=== PATIENT | female | born 1995 | race Caucasian/White ===

== ENCOUNTER 2020-07-10 16:52 | Emergency (ER) | payer BC, SELFPAY ==
[2020-07-10 17:00] VITALS: BP 156/101; PULSE 106; RESP 22; TEMP 36.6; O2SAT 98; BMI 24.1
--- NOTE | 2020-07-10 17:10 | CT_ITS ---
PROCEDURE INFORMATION: Exam: CT Head Without Contrast Exam date and time: 07/10/2020 5:10 PM Age: 25 years old Clinical indication: Dizziness; Patient HX: Headache, bilateral hand numbnness; Additional info: Headache, bilateral hand numbness TECHNIQUE: Imaging protocol: Computed tomography of the head without contrast. Radiation optimization: All CT scans at this facility use at least one of these dose optimization techniques: automated exposure control; mA and/or kV adjustment per patient size (includes targeted exams where dose is matched to clinical indication); or iterative reconstruction. COMPARISON: No relevant prior studies available. FINDINGS: Brain: Normal. No hemorrhage. Unremarkable white matter. No mass effect. Cerebral ventricles: No ventriculomegaly. Bones/joints: No acute fracture. Paranasal sinuses: Visualized sinuses are unremarkable. No fluid levels. Mastoid air cells: Visualized mastoid air cells are well aerated. Soft tissues: No acute changes IMPRESSION: No acute intracranial abnormality.
--- NOTE | 2020-07-10 17:12 | HMH.EDGENADL ---
ED Disposition Clinical Impression: Complicated migraine Disposition: Home, Self-Care Condition on Discharge: Good Instructions: DI for Migraine Additional Instructions: Return for recurrent headache numbness in your arms or legs nausea or any other concerns within the next 8 hours otherwise follow-up with your primary care physician tomorrow Referrals: Jihan Unger [Primary Care Provider] - - Critical Care Critical Care Time: No Attestation: On 07/10/20, the high probability of a clinically significant, sudden or life threatening deterioration of the following system(s) required my full and direct attention, intervention and personal management. The time I documented below is in addition to time spent performing reported procedures but includes the following listed in this critical care notation. Medical Decision Making - Medical Records Medical records reviewed: Yes: I reviewed the patient's medical records. - Elvis Inquiry Pt receiving controlled substance: No Vital Signs: 07/10/20 17:00 07/10/20 17:17 Temperature 97.8 F Temperature Source Oral Pulse Rate 118 H Pulse Rate [Right] 106 H Respiratory Rate 22 Blood Pressure 124/74 Blood Pressure [Right Arm] 156/101 H Blood Pressure Mean 98 Blood Pressure Mean [Right Arm] 119 Blood Pressure Source [Right Arm] Automatic Cuff Blood Pressure Position [Right Arm] Sitting 02 Sat by Pulse Oximetry 98 100 Oxygen Delivery Method Room Air - Lab Data Lab Results 07/10/20 16:50: Sodium 138, Potassium 3.6, Chloride 102, Carbon Dioxide 23, Anion Gap 16.6 H, BUN 16, Creatinine 0.80, Estimated Creat Clear 112, Estimated GFR 87, Est GFR ( Amer) 106, Glucose 132 H, Calcium 9.4, Magnesium 1.6, TSH 0.72 07/10/20 16:50: WBC 19.9 H, RBC 5.39, Hgb 15.9, Hct 47.7 H, MCV 88.5, MCH 29.5, MCHC 33.3, RDW 12.4, Plt Count 249, MPV 7.8, Neut % (Auto) 93.2 H, Lymph % (Auto) 2.9 L, [place] % (Auto) 2.7, Eos % (Auto) 1.0, Baso % (Auto) 0.3, Neut # (Auto) 18.5 H, Lymph # (Auto) 0.6 L, [place] # (Auto) 0.5, Eos # (Auto) 0.2, Baso # (Auto) 0.1, Total Counted 100, Neutrophils % (Manual) 89 H, Lymphocytes % (Manual) 4 L, Monocytes % (Manual) 5, Eosinophils % (Manual) 1, Metamyelocytes % 1.0, Platelet Estimate Normal, RBC Morphology Normal 07/10/20 16:50: Serum HCG, Qual Negative Result diagrams: 07/10/20 16:50 07/10/20 16:50 Orders (Tests/Meds): ED MEDICATIONS Discontinued Medications Generic Name Dose Route Start Last Admin Trade Name [place] PRN Reason Stop Dose Admin Diphenhydramine HCl 25 mg 07/10/20 17:11 07/10/20 17:18 Diphenhydramine 50mg/Ml Vial IV 07/10/20 17:12 25 mg ONCE ONE Administration Metoclopramide HCl 5 mg 07/10/20 18:04 07/10/20 18:06 Metoclopramide Hcl 10mg/2ml Vial IVP 07/10/20 18:05 5 mg ONCE ONE Administration Prochlorperazine Edisylate 10 mg 07/10/20 17:11 07/10/20 17:19 Prochlorperazine 10mg/2ml Vial IV 07/10/20 17:12 10 mg ONCE ONE Administration ORDERS Category Date Time Status CT angio head Stat Cat Scan 07/10/20 17:[address] angio neck Stat Cat Scan 07/10/20 17:10 Ordered Medical Decision Narrative: 25-year-old with new onset headache as above. She is in no acute distress nontoxic-appearing comfortable in the bed. She has normal neurological exam and NIH stroke scale is 0. Atypical presentation for subarachnoid hemorrhage meningitis or other emergent pathology. CT obtained due to paresthesias however I think more likely to be related to complex migraine. Giving medicine for migraine and plan to reassess Patient's nausea vomiting headache and paresthesia all resolved with antiemetics and pain medication for headache. She was feeling much better however she declined the contrasted scan because she thought it would make her more nauseated I offered antiemetic and more nausea medicine however she decided not to do this. She has full capacity to make this decision and understands th
[2020-07-10 17:17] VITALS: BP 124/74; PULSE 118; O2SAT 100
[2020-07-10 17:26] LABS: Basophils # 0.1 K/mm3 (0-0.2); Basophils % 0.3 % (0.1-2.0); Chloride 102 mmol/L (98-107); Eosinophils # 0.2 K/mm3 (0.0-0.4); Hematocrit 47.7 % (37.0-47.0); Hemoglobin 15.9 g/dL (12.2-16.2); Lymphocytes # 0.6 K/mm3 (0.7-4.5); Lymphocytes % 2.9 % (10-50); Mean Corpuscular HGB Conc 33.3 g/dL (31.8-35.4); Mean Corpuscular Hemoglobin 29.5 pg (27.0-31.2); Mean Corpuscular Volume 88.5 fl (81-99); Mean Platelet Volume 7.8 fl (7.4-10.4); Monocytes # 0.5 K/mm3 (0.1-1.0); Monocytes % 2.7 % (1.7-9.3); Neutrophils # 18.5 K/mm3 (1.8-7.8); Neutrophils % 93.2 % (37.0-80.0); Platelet Count 249 K/mm3 (142-424); Potassium 3.6 mmoL/L (3.5-5.1); Red Blood Count 5.39 M/mm3 (4.20-5.40); Red Cell Distribution Width 12.4 % (11.5-17.5); Sodium 138 mmol/L (136-145); White Blood Count 19.9 K/mm3 (4.8-10.8)
[2020-07-10 17:27] LABS: MANUAL DIFFERENTIAL MANUAL DIFFERENTIAL (MANUAL DIFF)
[2020-07-10 17:28] LABS: Blood Urea Nitrogen 16 mg/dl (7-17); Creatinine Clearance Estimated 112 mL/min (50-200); Estimated Glomerular Filt Rate 87 ml/min (>60); GFR (African American) 106 ML/MIN (>60)
[2020-07-10 17:29] LABS: Anion Gap 16.6 mEq/L (5-15); Calcium 9.4 mg/dl (8.4-10.2); Carbon Dioxide 23 mmol/L (22.0-30.0); Glucose 132 mg/dl (74-100); Magnesium 1.6 mg/dl (1.6-2.3)
[2020-07-10 17:34] LABS: HCG Qualitative, Serum Negative (Negative)
[2020-07-10 17:43] LABS: Eosinophils % 1 % (0-3); Lymphocytes % 4 % (10-50); Monocytes % 5 % (2-9); Neutrophils % 89 % (42-76); Platelet Estimate Normal; RBC Morphology Normal; Total Cells Counted 100
--- NOTE | 2020-07-10 17:45 | PC.NURSE ---
pt going to CT
[2020-07-10 18:00] LABS: Thyroid Stimulating Hormone 0.72 uIU/mL (0.465-4.68)
--- NOTE | 2020-07-10 18:00 | PC.NURSE ---
Radiology called and advised patient is refusing scans due to nausea and inability to lay flat. Pt was given Reglan to help with nausea. Patient still refused scan. I advised her that she most likely wouldn't find out what is going on if she isn't able to do the scans and she refused and requested to be returned to her room. Patient was taken back to her room & MD Woods notified.
--- NOTE | 2020-07-10 18:29 | PC.NURSE ---
MD at bedside speaking with pt about CT scans.
--- NOTE | 2020-07-10 19:18 | PC.NURSE ---
ct scans cancelled. pt refused.
[2020-07-10 19:30] VITALS: BP 112/72; PULSE 105; RESP 16; O2SAT 100
[2020-07-10 20:08] VITALS: BP 107/70; PULSE 99; RESP 16; TEMP 36.6; O2SAT 99
== END 2020-07-10 20:10 | disposition home or self-care (01) ==
PROVIDERS: Emergency Provider Emergency Medicine; PCP Nurse Practitioner Family
DX: G43.109 Migraine with aura, not intractable, without status migrainosus (principal)
CPT/HCPCS: 70450; 80048; 83735; 84443; 84703; 85007; 85025; 96374; 96375; 99282

== ENCOUNTER → 2022-05-27 10:57 | Outpatient (CLI) | payer BC, SELFPAY ==
[2022-05-27 18:46] LABS: Basophils # 0.1 K/mm3 (0-0.2); Basophils % 0.9 % (0.1-2.0); Eosinophils # 0.2 K/mm3 (0.0-0.4); Eosinophils % 3.1 % (0.1-12.0); Hematocrit 44.7 % (37.0-47.0); Hemoglobin 15.3 g/dL (12.2-16.2); Lymphocytes # 1.2 K/mm3 (0.7-4.5); Mean Corpuscular HGB Conc 34.2 g/dL (31.8-35.4); Mean Corpuscular Hemoglobin 30.8 pg (27.0-31.2); Mean Corpuscular Volume 90.1 fl (81-99); Mean Platelet Volume 8.4 fl (7.4-10.4); Monocytes # 0.3 K/mm3 (0.1-1.0); Monocytes % 5.7 % (1.7-9.3); Neutrophils # 4.1 K/mm3 (1.8-7.8); Neutrophils % 70.3 % (37.0-80.0); Platelet Count 267 K/mm3 (142-424); Red Blood Count 4.96 M/mm3 (4.20-5.40); Red Cell Distribution Width 12.9 % (11.5-17.5); White Blood Count 5.9 K/mm3 (4.8-10.8)
[2022-05-27 19:04] LABS: Alanine Aminotransferase 22 U/L (12-78); Albumin Level 4.9 g/dl (3.5-5.0); Albumin/Globulin Ratio 1.7 (1.1-1.8); Alkaline Phosphatase 72 U/L (38-126); Anion Gap 11.4 mEq/L (5-15); Aspartate Amino Transferase 28 U/L (14-36); Bilirubin,Total 0.5 mg/dl (0.2-1.3); Blood Urea Nitrogen 9 mg/dl (7-17); Calcium 9.2 mg/dl (8.4-10.2); Carbon Dioxide 27 mmol/L (22.0-30.0); Chloride 101 mmol/L (98-107); Estimated Glomerular Filt Rate 86 ml/min (>60); GFR (African American) 104 ML/MIN (>60); Globulin 2.9 g/dL (1.3-3.2); Glucose 66 mg/dl (74-100); Potassium 4.4 mmoL/L (3.5-5.1); Sodium 135 mmol/L (136-145); Total Protein,Serum 7.8 g/dl (6.3-8.2)
[2022-05-27 19:31] LABS: Thyroid Stimulating Hormone 1.66 uIU/mL (0.465-4.68)
== END ==
PROVIDERS: PCP Family Medicine; Visit Provider Family Medicine
DX: F43.23 Adjustment disorder with mixed anxiety and depressed mood (principal); Z79.899 Other long term (current) drug therapy
CPT/HCPCS: 80053; 84443; 85025

== ENCOUNTER → 2022-08-24 16:58 | Outpatient (CLI) | payer BC, SELFPAY ==
--- NOTE | 2022-08-24 17:22 | XR_ITS ---
PROCEDURE INFORMATION: Exam: XR Chest Exam date and time: 08/24/2022 5:15 PM Age: 27 years old Clinical indication: Other: Diminished breath sounds left lung base. ; Additional info: Diminished breath sounds at left lung base TECHNIQUE: Imaging protocol: Radiologic exam of the chest. Views: 2 views. COMPARISON: CR CXR CHEST(2 VIEWS-NOT PORTABLE) 10/22/2016 9:21 AM FINDINGS: Lungs: Unremarkable. No consolidation. Pleural spaces: Unremarkable. No pleural effusion. No pneumothorax. Heart/Mediastinum: Unremarkable. No cardiomegaly. Bones/joints: Unremarkable. IMPRESSION: No acute findings.
== END ==
PROVIDERS: PCP Nurse Practitioner; Visit Provider Nurse Practitioner
DX: R06.89 Other abnormalities of breathing (principal)
CPT/HCPCS: 71046

== ENCOUNTER → 2022-10-19 23:37 | Outpatient (CLI) | payer BC, SELFPAY | PROVIDERS: PCP Nurse Practitioner; Visit Provider Nurse Practitioner | DX: N20.0 Calculus of kidney (principal) | CPT/HCPCS: 87086 ==

== ENCOUNTER → 2022-11-17 23:13 | Outpatient (CLI) | payer BC, SELFPAY ==
[2022-11-17 18:46] LABS: Basophils % 0.7 % (0.1-2.0); Eosinophils # 0.4 K/mm3 (0.0-0.4); Eosinophils % 6.9 % (0.1-12.0); Hemoglobin 16.1 g/dL (12.2-16.2); Lymphocytes # 1.7 K/mm3 (0.7-4.5); Mean Corpuscular HGB Conc 32.8 g/dL (31.8-35.4); Mean Corpuscular Hemoglobin 30.2 pg (27.0-31.2); Mean Corpuscular Volume 92.1 fl (81-99); Mean Platelet Volume 9.5 fl (7.4-10.4); Monocytes # 0.3 K/mm3 (0.1-1.0); Neutrophils # 3.7 K/mm3 (1.8-7.8); Neutrophils % 60.4 % (37.0-80.0); Platelet Count 251 K/mm3 (142-424); Red Blood Count 5.32 M/mm3 (4.20-5.40); Red Cell Distribution Width 12.9 % (11.5-17.5); White Blood Count 6.1 K/mm3 (4.8-10.8)
[2022-11-17 18:51] LABS: Alanine Aminotransferase 38 U/L (12-78); Albumin Level 4.5 g/dl (3.5-5.0); Albumin/Globulin Ratio 1.6 (1.1-1.8); Alkaline Phosphatase 71 U/L (38-126); Aspartate Amino Transferase 34 U/L (14-36); Bilirubin,Total 0.4 mg/dl (0.2-1.3); Blood Urea Nitrogen 12 mg/dl (7-17); Carbon Dioxide 30 mmol/L (22.0-30.0); Chloride 101 mmol/L (98-107); Chol/HDL Ratio 5.6 (1-3.5); Cholesterol 178 mg/dl (140-200); Estimated Glomerular Filt Rate 86 ml/min (>60); GFR (African American) 104 ML/MIN (>60); Globulin 2.8 g/dL (1.3-3.2); Glucose 84 mg/dl (74-100); HDL Cholesterol 32 mg/dl (40-60); Sodium 139 mmol/L (136-145); Total Protein,Serum 7.3 g/dl (6.3-8.2); Triglycerides 196 mg/dl (30-150); VLDL Cholesterol 39 mg/dL (0-40)
[2022-11-17 19:02] LABS: Direct LDL Cholesterol 113.62 mg/dL (100-129)
[2022-11-17 19:08] LABS: 25-OH Vitamin D, Total 30.4 ng/mL (30-100)
[2022-11-17 19:22] LABS: Thyroid Stimulating Hormone 1.87 uIU/mL (0.465-4.68)
[2022-11-17 19:29] LABS: Hemoglobin A1C 4.9 % (4.0-6.0)
[2022-11-17 19:40] LABS: Vitamin B12 321 pg/mL (239-931)
== END ==
PROVIDERS: PCP Nurse Practitioner; Visit Provider Nurse Practitioner
DX: R73.09 Other abnormal glucose (principal); Z86.32 Personal history of gestational diabetes; Z79.899 Other long term (current) drug therapy
CPT/HCPCS: 80053; 80061; 82306; 82607; 83036; 84443; 85025

== ENCOUNTER → 2022-11-29 06:48 | Outpatient (CLI) | payer BC, SELFPAY ==
[2022-11-30 05:41] LABS: Creatinine,Urine Random 36 mg/dL (Not Estab.); Microalbumin < 6.000 mg/L (0-16.7)
== END ==
PROVIDERS: PCP Nurse Practitioner; Visit Provider Nurse Practitioner
DX: N18.9 Chronic kidney disease, unspecified (principal); R73.09 Other abnormal glucose
CPT/HCPCS: 82043; 82570

== ENCOUNTER → 2022-12-27 19:11 | Outpatient (CLI) | payer BC, SELFPAY | PROVIDERS: PCP Nurse Practitioner; Visit Provider Nurse Practitioner | DX: Z20.822 Contact with and (suspected) exposure to COVID-19 (principal) | CPT/HCPCS: 87635 ==

== ENCOUNTER → 2023-01-27 09:20 | Outpatient (CLI) | payer BC, SELFPAY | PROVIDERS: PCP Nurse Practitioner; Visit Provider Nurse Practitioner | DX: R30.0 Dysuria (principal) | CPT/HCPCS: 87086 ==

== ENCOUNTER 2023-04-27 22:21 | Outpatient (CLI) | payer BC, SELFPAY ==
[2023-04-27 18:57] LABS: Basophils # 0.1 K/mm3 (0-0.2); Basophils % 0.6 % (0.1-2.0); Hematocrit 43.8 % (37.0-47.0); Hemoglobin 14.8 g/dL (12.2-16.2); Lymphocytes # 1.1 K/mm3 (0.7-4.5); Lymphocytes % 15.8 % (10-50); Mean Corpuscular HGB Conc 33.8 g/dL (31.8-35.4); Mean Corpuscular Hemoglobin 31.2 pg (27.0-31.2); Mean Corpuscular Volume 92.3 fl (81-99); Mean Platelet Volume 8.8 fl (7.4-10.4); Monocytes # 0.4 K/mm3 (0.1-1.0); Monocytes % 5.7 % (1.7-9.3); Neutrophils # 5.6 K/mm3 (1.8-7.8); Platelet Count 222 K/mm3 (142-424); Red Blood Count 4.75 M/mm3 (4.20-5.40); White Blood Count 7.2 K/mm3 (4.8-10.8)
[2023-04-27 20:06] LABS: Alanine Aminotransferase 249 U/L (12-78); Albumin Level 4.4 g/dl (3.5-5.0); Albumin/Globulin Ratio 1.8 (1.1-1.8); Alkaline Phosphatase 76 U/L (38-126); Anion Gap 8.9 mEq/L (5-15); Aspartate Amino Transferase 92 U/L (14-36); Bilirubin,Total 0.5 mg/dl (0.2-1.3); Blood Urea Nitrogen 11 mg/dl (7-17); Carbon Dioxide 27 mmol/L (22.0-30.0); Chloride 104 mmol/L (98-107); Chol/HDL Ratio 5.8 (1-3.5); Cholesterol 236 mg/dl (140-200); Estimated Glomerular Filt Rate 75 ml/min (>60); GFR (African American) 90 ML/MIN (>60); Globulin 2.4 g/dL (1.3-3.2); Glucose 89 mg/dl (74-100); HDL Cholesterol 41 mg/dl (40-60); Potassium 3.9 mmoL/L (3.5-5.1); Sodium 136 mmol/L (136-145); Total Protein,Serum 6.8 g/dl (6.3-8.2); Triglycerides 133 mg/dl (30-150); VLDL Cholesterol 27 mg/dL (0-40)
[2023-04-27 20:10] LABS: Free T4 (Free Thyroxine) 0.98 ng/dl (0.78-2.19)
[2023-04-27 20:18] LABS: Direct LDL Cholesterol 135.73 mg/dL (100-129)
[2023-04-27 20:56] LABS: Iron 71 ug/dL (37-170)
[2023-04-27 21:03] LABS: Vitamin B12 > 1000 pg/mL (239-931)
[2023-04-27 21:05] LABS: Total Iron Binding Capacity 302 ug/dL (265-497)
[2023-04-29 15:51] LABS: Rapid Plasma Reagin Ab Titer Non Reactive titer (NonRea<1:1)
[2023-05-01 12:25] LABS: Anti-Centromere B Antibodies <0.2 AI (0.0-0.9); Anti-DNA (DS) Ab Qn 2 IU/mL (0-9); Anti-Jo-1 <0.2 AI (0.0-0.9); Anti-Smith Antibody <0.2 AI (0.0-0.9); Antichromatin Antibodies <0.2 AI (0.0-0.9); Antiscleroderma-70 Antibodies <0.2 AI (0.0-0.9); RNP Antibodies <0.2 AI (0.0-0.9); Sjogren's Anti-SS-A <0.2 AI (0.0-0.9); Sjogren's Anti-SS-B <0.2 AI (0.0-0.9)
== END 2023-04-27 23:59 ==
LOC: LAB.DROPOF 22:21
PROVIDERS: PCP Nurse Practitioner; Visit Provider Nurse Practitioner
DX: L65.8 Other specified nonscarring hair loss (principal); R53.83 Other fatigue; R74.01 Elevation of levels of liver transaminase levels; R79.89 Other specified abnormal findings of blood chemistry; Z79.899 Other long term (current) drug therapy
CPT/HCPCS: 80053; 80061; 82306; 82607; 82728; 83036; 83540; 83550; 84439; 84443; 85025; 86225; 86235; 86593

== ENCOUNTER 2023-05-01 10:33 | Outpatient (CLI) | payer BC, SELFPAY ==
[2023-05-01 11:59] LABS: Free T4 (Free Thyroxine) 0.96 ng/dl (0.78-2.19)
[2023-05-01 12:13] LABS: Thyroid Stimulating Hormone 1.97 uIU/mL (0.465-4.68)
[2023-05-02 08:17] LABS: Triiodothyronine (T3) Free 3.6 pg/mL (2.0-4.4)
== END 2023-05-01 23:59 ==
LOC: LAB 10:34
PROVIDERS: PCP Nurse Practitioner; Visit Provider Nurse Practitioner
DX: R79.89 Other specified abnormal findings of blood chemistry (principal); L65.9 Nonscarring hair loss, unspecified
CPT/HCPCS: 36415; 84439; 84443; 84481

== ENCOUNTER 2023-06-06 06:46 | Outpatient (CLI) | payer BC, SELFPAY ==
[2023-06-06 18:24] LABS: Basophils # 0.1 K/mm3 (0-0.2); Basophils % 1.4 % (0.1-2.0); Eosinophils % 0.5 % (0.1-12.0); Hematocrit 44.3 % (37.0-47.0); Hemoglobin 14.8 g/dL (12.2-16.2); Lymphocytes # 1.1 K/mm3 (0.7-4.5); Lymphocytes % 21.9 % (10-50); Mean Corpuscular HGB Conc 33.4 g/dL (31.8-35.4); Mean Corpuscular Hemoglobin 31.5 pg (27.0-31.2); Mean Corpuscular Volume 94.4 fl (81-99); Mean Platelet Volume 8.3 fl (7.4-10.4); Monocytes # 0.2 K/mm3 (0.1-1.0); Monocytes % 4.2 % (1.7-9.3); Neutrophils # 3.7 K/mm3 (1.8-7.8); Neutrophils % 71.9 % (37.0-80.0); Platelet Count 223 K/mm3 (142-424); Red Blood Count 4.69 M/mm3 (4.20-5.40); Red Cell Distribution Width 14.1 % (11.5-17.5); White Blood Count 5.1 K/mm3 (4.8-10.8)
[2023-06-06 18:36] LABS: INR 0.99 (0.9-1.1); Prothrombin Time 10.7 seconds (10.1-12.5)
[2023-06-06 19:05] LABS: Erythrocyte Sedimentation Rate 6 mm/hr (0-20)
[2023-06-06 19:41] LABS: Alanine Aminotransferase 87 U/L (12-78); Albumin Level 4.8 g/dl (3.5-5.0); Albumin/Globulin Ratio 1.8 (1.1-1.8); Alkaline Phosphatase 89 U/L (38-126); Anion Gap 10.4 mEq/L (5-15); Aspartate Amino Transferase 53 U/L (14-36); Bilirubin,Total 0.6 mg/dl (0.2-1.3); Blood Urea Nitrogen 11 mg/dl (7-17); Calcium 9.5 mg/dl (8.4-10.2); Carbon Dioxide 29 mmol/L (22.0-30.0); Chloride 104 mmol/L (98-107); Estimated Glomerular Filt Rate 66 ml/min (>60); GFR (African American) 80 ML/MIN (>60); Globulin 2.6 g/dL (1.3-3.2); Glucose 89 mg/dl (74-100); Potassium 3.4 mmoL/L (3.5-5.1); Sodium 140 mmol/L (136-145); Total Protein,Serum 7.4 g/dl (6.3-8.2)
[2023-06-06 19:53] LABS: C-Reactive Protein < 0.3 mg/L (0-4)
[2023-06-06 20:01] LABS: Free T4 (Free Thyroxine) 1.13 ng/dl (0.78-2.19)
[2023-06-06 20:16] LABS: Thyroid Stimulating Hormone 0.41 uIU/mL (0.465-4.68)
[2023-06-06 22:57] LABS: Vitamin B12 > 1000 pg/mL (239-931)
== END 2023-06-06 23:59 | disposition home or self-care (01) ==
LOC: LAB.DROPOF 06-08 06:46
PROVIDERS: PCP Nurse Practitioner; Visit Provider Nurse Practitioner
DX: N18.9 Chronic kidney disease, unspecified (principal); R53.83 Other fatigue; R23.3 Spontaneous ecchymoses; R74.8 Abnormal levels of other serum enzymes; Z79.899 Other long term (current) drug therapy
CPT/HCPCS: 80053; 82607; 82746; 84439; 84443; 85025; 85610; 85651; 86140

== ENCOUNTER 2023-06-26 10:00 | Outpatient (CLI) | payer BC, SELFPAY ==
[2023-06-26 18:57] LABS: Basophils # 0.1 K/mm3 (0-0.2); Basophils % 1.4 % (0.1-2.0); Eosinophils % 0.4 % (0.1-12.0); Hematocrit 41.2 % (37.0-47.0); Hemoglobin 13.9 g/dL (12.2-16.2); Lymphocytes # 1.1 K/mm3 (0.7-4.5); Lymphocytes % 28.7 % (10-50); Mean Corpuscular HGB Conc 33.8 g/dL (31.8-35.4); Mean Corpuscular Hemoglobin 31.5 pg (27.0-31.2); Mean Corpuscular Volume 93.3 fl (81-99); Monocytes # 0.3 K/mm3 (0.1-1.0); Monocytes % 7.1 % (1.7-9.3); Neutrophils # 2.5 K/mm3 (1.8-7.8); Neutrophils % 62.5 % (37.0-80.0); Platelet Count 216 K/mm3 (142-424); Red Blood Count 4.42 M/mm3 (4.20-5.40); Red Cell Distribution Width 13.8 % (11.5-17.5)
[2023-06-26 19:46] LABS: Alanine Aminotransferase 105 U/L (12-78); Albumin Level 4.4 g/dl (3.5-5.0); Albumin/Globulin Ratio 1.7 (1.1-1.8); Alkaline Phosphatase 70 U/L (38-126); Anion Gap 11.3 mEq/L (5-15); Aspartate Amino Transferase 43 U/L (14-36); Bilirubin,Total 0.6 mg/dl (0.2-1.3); Blood Urea Nitrogen 14 mg/dl (7-17); Calcium 9.2 mg/dl (8.4-10.2); Carbon Dioxide 31 mmol/L (22.0-30.0); Chloride 102 mmol/L (98-107); Estimated Glomerular Filt Rate 85 ml/min (>60); GFR (African American) 103 ML/MIN (>60); Globulin 2.6 g/dL (1.3-3.2); Glucose 105 mg/dl (74-100); Potassium 3.3 mmoL/L (3.5-5.1); Sodium 141 mmol/L (136-145)
[2023-06-26 19:52] LABS: C-Reactive Protein 0.4 mg/L (0-4)
[2023-06-26 20:02] LABS: Free T4 (Free Thyroxine) 0.96 ng/dl (0.78-2.19)
[2023-06-26 20:05] LABS: Erythrocyte Sedimentation Rate 13 mm/hr (0-20)
[2023-06-26 20:17] LABS: Thyroid Stimulating Hormone 1.39 uIU/mL (0.465-4.68)
[2023-06-28 16:32] LABS: Lyme Ab CIA Negative (Negative)
== END 2023-06-26 23:59 | disposition home or self-care (01) ==
LOC: LAB.DROPOF 06-28 10:00
PROVIDERS: PCP Nurse Practitioner; Visit Provider Nurse Practitioner
DX: G43.919 Migraine, unspecified, intractable, without status migrainosus (principal)
CPT/HCPCS: 80053; 84439; 84443; 85025; 85651; 86140; 86618

== ENCOUNTER 2023-08-02 13:05 | Outpatient (CLI) | payer BC, SELFPAY ==
--- NOTE | 2023-08-02 13:05 | US_ITS ---
FINAL REPORT CLINICAL HISTORY: left posterior cervical LAD COMPARISON: None FINDINGS: Sonographic images were obtained of the bilateral neck. The bilateral submandibular and parotid glands appear normal. There are several small and borderline size lymph nodes. At the level of the palpable abnormality in the posterior neck is a 9 mm ovoid hypoechoic mass likely representing a lymph node. IMPRESSION: Palpable abnormality likely represents a lymph node. Reviewed, Interpreted and Dictated by Juan Deleon III, MD Transcribed by Anna Hairston Authenticated and [facility]
--- NOTE | 2023-08-02 13:05 | MR_ITS ---
FINAL REPORT CLINICAL HISTORY: intractable migraine FINDINGS: Multiplanar MR imaging of the brain was performed without and with contrast. There is no evidence of intracranial hemorrhage or mass. No abnormal extra-axial fluid collection is seen. The ventricular size is within normal limits. There is no evidence of shift of the midline structures. The posterior fossa and brainstem have an unremarkable appearance. No area of abnormal restricted diffusion is identified. No abnormal contrast enhancement is seen. Normal major vessel vascular flow voids are noted. IMPRESSION: No acute intracranial abnormality identified. Authenticated and ERN
[2023-08-02] MEDS: GADOTERIDOL INJ 20ML SYRINGE 14 ML IV (15:25)
== END 2023-08-02 23:59 | disposition home or self-care (01) ==
LOC: RAD 13:05
PROVIDERS: PCP Nurse Practitioner; Visit Provider Nurse Practitioner
DX: R59.0 Localized enlarged lymph nodes (principal); G43.919 Migraine, unspecified, intractable, without status migrainosus
CPT/HCPCS: 70553; 76536; A9576

== ENCOUNTER 2023-08-30 08:02 | Outpatient (CLI) | payer BC, SELFPAY | END 2023-08-30 23:59 | disposition home or self-care (01) | LOC: LAB.DROPOF 08-31 08:48 | PROVIDERS: PCP Nurse Practitioner; Visit Provider Nurse Practitioner | DX: R30.0 Dysuria (principal) | CPT/HCPCS: 87086 ==

== ENCOUNTER 2023-10-24 14:35 | Outpatient (CLI) | payer BC, SELFPAY ==
[2023-10-24 18:59] LABS: Eosinophils % 0.4 % (0.1-12.0); Hematocrit 42.6 % (37.0-47.0); Hemoglobin 14.2 g/dL (12.2-16.2); Lymphocytes # 1.1 K/mm3 (0.7-4.5); Lymphocytes % 28.4 % (10-50); Mean Corpuscular HGB Conc 33.3 g/dL (31.8-35.4); Mean Corpuscular Hemoglobin 31.5 pg (27.0-31.2); Mean Corpuscular Volume 94.4 fl (81-99); Mean Platelet Volume 8.9 fl (7.4-10.4); Monocytes # 0.3 K/mm3 (0.1-1.0); Monocytes % 7.2 % (1.7-9.3); Neutrophils # 2.4 K/mm3 (1.8-7.8); Neutrophils % 63.2 % (37.0-80.0); Platelet Count 227 K/mm3 (142-424); Red Blood Count 4.51 M/mm3 (4.20-5.40); Red Cell Distribution Width 13.5 % (11.5-17.5); White Blood Count 3.8 K/mm3 (4.8-10.8)
[2023-10-24 19:26] LABS: Alanine Aminotransferase 17 U/L (12-78); Albumin Level 3.9 g/dl (3.5-5.0); Albumin/Globulin Ratio 1.4 (1.1-1.8); Alkaline Phosphatase 59 U/L (38-126); Anion Gap 7.8 mEq/L (5-15); Aspartate Amino Transferase 24 U/L (14-36); Bilirubin,Total 0.5 mg/dl (0.2-1.3); Blood Urea Nitrogen 7 mg/dl (7-17); Carbon Dioxide 27 mmol/L (22.0-30.0); Chloride 106 mmol/L (98-107); Estimated Glomerular Filt Rate 85 ml/min (>60); GFR (African American) 103 ML/MIN (>60); Globulin 2.7 g/dL (1.3-3.2); Glucose 79 mg/dl (74-100); Potassium 3.8 mmoL/L (3.5-5.1); Sodium 137 mmol/L (136-145); Total Protein,Serum 6.6 g/dl (6.3-8.2)
[2023-10-24 19:42] LABS: Erythrocyte Sedimentation Rate 6 mm/hr (0-20)
[2023-10-24 19:47] LABS: 25-OH Vitamin D, Total 37.5 ng/mL (30-100)
[2023-10-24 19:57] LABS: Thyroid Stimulating Hormone 1.85 uIU/mL (0.465-4.68)
[2023-10-24 20:01] LABS: C-Reactive Protein < 0.3 mg/L (0-4)
[2023-10-24 20:33] LABS: Vitamin B12 888 pg/mL (239-931)
[2023-10-24 20:39] LABS: Folate 6.82 ng/mL
== END 2023-10-24 23:59 | disposition home or self-care (01) ==
LOC: LAB.DROPOF 10-25 14:35
PROVIDERS: PCP Nurse Practitioner; Visit Provider Nurse Practitioner
DX: G43.909 Migraine, unspecified, not intractable, without status migrainosus (principal); N18.9 Chronic kidney disease, unspecified; R53.83 Other fatigue; Z86.32 Personal history of gestational diabetes
CPT/HCPCS: 80050; 80053; 82306; 82607; 82746; 84443; 85025; 85651; 86140

== ENCOUNTER 2024-01-01 19:09 | Day surgery (SDC) | payer BC, SELFPAY ==
[2024-01-01 19:10] VITALS: BP 136/87; PULSE 78; RESP 20; TEMP 36.7; O2SAT 98; BMI 23.8
--- NOTE | 2024-01-01 19:18 | XR_ITS ---
PROCEDURE INFORMATION: Exam: XR Chest Exam date and time: 01/01/2024 7:55 PM Age: 28 years old Clinical indication: Injury or trauma; Other: Food bolus TECHNIQUE: Imaging protocol: Radiologic exam of the chest. Views: 2 views. COMPARISON: No relevant prior studies available. FINDINGS: Lungs: Normal pulmonary expansion. Pulmonary vasculature grossly normal. No gross pulmonary infiltrates or edema pattern. Pleural spaces: No pleural effusion. No pneumothorax. Heart/Mediastinum: Heart size normal. No tracheal/mediastinal shift. Bones/joints: No acute osseous abnormalities are identified. Intraperitoneal space: Right upper quadrant surgical clips suggest prior cholecystectomy. IMPRESSION: No acute thoracic process.
--- NOTE | 2024-01-01 19:19 | HMH.EDGENADL ---
Discharge Plan Disposition Patient Disposition: Admitted Condition: Good Chief Complaint: Nausea/Vomiting/Diarrhea Prescriptions Prescriptions: No Action oxazepam 10 mg capsule 10 mg PO TIDP Qty: 90 0RF Ajovy Autoinjector 225 mg/1.5 mL auto-injector 225 mg SQ QMONTH Zavzpret 10 mg/actuation spray,non-aerosol intranasal bupropion HCl 300 mg tablet extended release 24 hr 300 mg PO DAILY Qty: 90 3RF prazosin 1 mg capsule 2 mg PO HS PRN (Reason: Nightmares) Qty: 180 3RF quetiapine [Seroquel] 25 mg tablet 25 - 50 mg PO HS PRN (Reason: sleep) Qty: 180 3RF desvenlafaxine 50 mg tablet extended release 24 hr 50 mg PO DAILY Qty: 30 2RF fluticasone propionate 50 mcg/actuation spray,suspension 1 spray intranasal DAILY Qty: 16 2RF Rx Instructions: administer into each nostril ondansetron HCl 4 mg tablet 4 mg PO Q8H PRN (Reason: nausea and vomiting) Qty: 30 0RF lorazepam 2 mg tablet 2 mg PO BID PRN (Reason: anxiety) Qty: 14 0RF Rx Instructions: 1/2-1 po bid prn signif anxiety do not take oxazepam with this medication use sparingly when possible Referrals Follow up/Referrals: Latonya Contreras APRN [Primary Care Provider] - See instructions Clinical Impressions Clinical Impression: Food impaction of esophagus Instructions Patient Instructions: DI for Nausea -- Adult, DI for Nausea -- Child, DI for Diarrhea and Traveler's Diarrhea -- Adult, DI for Diarrhea and Traveler's Diarrhea -- Child Print Language Print Language: [place] Discharge ED Provider: Chloé King General Adult HPI General Chief complaint: Nausea/Vomiting/Diarrhea Stated complaint: Something lodged in throat Time Seen by Provider: 01/01/24 19:18 History of Present Illness HPI narrative: This patient is a 28-year-old female who denies significant past medical history presenting to the emergency department for evaluation with concern for feeling of food stuck in her throat. She notes that she ate roast approximate 1 hour prior to arrival and felt that the wrist got stuck in her throat. She has had vomiting ever since and has been unable to tolerate her secretions. She notes that she had a small piece of meat come back up, but she was like there something that still stuck. She tried to drink liquids without success. She complains of significant discomfort at this time. She notes that she has had issues where she is gotten choked on food in the past but has never had any issues with this severe. She states usually she is able to vomit back up. She denies any history of esophageal issues or prior endoscopy. Related Data Home Medications ?Medication ?Instructions ?Recorded ?Confirmed fremanezumab-vfrm 225 mg/1.5 mL 225 mg SQ QMONTH 09/11/23 12/07/23 subcutaneous auto-injector (Ajovy) zavegepant 10 mg/actuation nasal intranasal 09/11/23 12/07/23 spray (Zavzpret) Previous Rx's ?Medication ?Instructions ?Recorded oxazepam 10 mg capsule 10 mg PO TIDP situational 05/27/22 depression #90 caps fluticasone propionate 50 1 spray intranasal DAILY #16 grams 12/26/22 mcg/actuation nasal spray,suspension ondansetron HCl 4 mg tablet 4 mg PO Q8H PRN nausea and 10/31/23 vomiting #30 tabs lorazepam 2 mg tablet 2 mg PO BID PRN anxiety #14 tabs 11/16/23 bupropion HCl 300 mg 24 hr tablet, 300 mg PO DAILY #90 tabs 12/07/23 extended release desvenlafaxine 50 mg 50 mg PO DAILY #30 tabs 12/07/23 tablet,extended release 24 hr prazosin 1 mg capsule 2 mg (2 x 1 mg) PO HS PRN 12/07/23 Nightmares #180 caps quetiapine 25 mg tablet (Seroquel) 25 - 50 mg (1 - 2 x 25 mg) PO HS 12/07/23 PRN sleep #180 tabs Allergies Allergy/AdvReac Type Severity Reaction Status Date / Time No Known Allergies Allergy Verified 12/07/23 08:25 [facility] Disclaimer: The information contained in this section may have been updated after the patient was seen, as this information can be updated by other users. Medical History Spasm of cervical paraspinous muscle Neck pain Posterior cervical lymphadenopathy Abnormal x-ray of cervical spine Intractable migraine Elevated liver enzymes Easy bruising Fatigue Migraine Alopecia Dysfunction of left eustachian tube CKD (chronic kidney disease) History of gestational diabetes Elevated random blood glucose level Situational mixed anxiety and depressive disorder Pap smear abnormality of cervix with LGSIL Anxiety Migraine with aura Complicated migraine Hyperemesis gravidarum Surgical History History of tonsillectomy History of cholecystectomy [place] teeth extracted Family History Mother Kidney disease Cancer Father Coronary artery disease Diabetes Heart attack Hyperlipidemia Hypertension Social History Smoking Status: Never smoker alcohol intake: current alcohol intake frequency: holidays/special occasions only substance use type: denies use current occupational status: employed Travel in the last 8 weeks: None household members: children housing: house lives independently: Yes number of children: 1 Other Medical History Have you received the Flu Vaccine for this season: No Have you received the Pneumonia Vaccine: No ROS Obtained: Yes All systems reviewed & no additional complaints except as documented Physical Exam General General appearance: alert Comment: Uncomfortable appearing, unable to tolerate secretions. Head Head exam: atraumatic and normocephalic Eye Eye exam: Present normal appearance, PERRL and EOMI ENT ENT exam: Present normal exam, normal oropharynx, mucous membranes moist and normal external ear exam Neck Neck exam: Present normal inspection, full ROM and trachea midline; Absent tenderness Chest Chest inspection: Present normal inspection and symmetric chest wall rise; Absent tenderness Respiratory Respiratory exam: Present normal lung sounds bilaterally; Absent respiratory distress, wheezes, stridor or accessory muscle use Cardiovascular Cardiovascular exam: Present regular rate and normal rhythm Abdominal Exam Abdominal exam: Present soft; Absent distention, tenderness or guarding Extremities Exam Extremities exam: Present normal inspection, full ROM and normal capillary refill; Absent tenderness or edema Back Exam Back exam: Present normal inspection and full ROM; Absent tenderness Neurological Exam Neurological exam: Present alert, oriented X3, CN II-XII intact and normal gait; Absent motor sensory deficit Psychiatric Psychiatric exam: Present normal affect and normal mood Skin Skin exam: Present warm and dry Medical Decision Making Medical Records Medical records reviewed: Yes I reviewed the patient's medical records. Screening: Per USPSTF and CDC recommendations, given the prevalence of disease in our region, it is our hospital?s policy to screen for HIV and viral Hepatitis for all patients aged 18 and over and those with ongoing risk factors. Elvis Inquiry Pt receiving controlled substance: No Vital Signs: 01/01/24 19:10 01/01/24 21:28 01/01/24 21:33 Temperature 98.0 F 98.0 F Temperature Source Oral Oral Pulse Rate 80 Pulse Rate [Right] 78 Respiratory Rate 20 18 Blood Pressure 120/78 Blood Pressure [Right Arm] 136/87 Blood Pressure Mean [Right Arm] 103 Blood Pressure Source Automatic Cuff Blood Pressure Source [Right Arm] Automatic Cuff 02 Sat by Pulse Oximetry 98 Oxygen Delivery Method Room Air Room Air Nasal Cannula Oxygen Flow Rate (LPM) 5 Lab Data Lab results reviewed: Yes I reviewed the patient's lab results. Lab Results 01/01/24 19:32: WBC 6.7, RBC 5.05, Hgb 15.9, Hct 44.3, MCV 87.6, MCH 31.5 H, MCHC 36.0 H, RDW 12.7, Plt Count 231, MPV 7.8, Neut % (Auto) 74.8, Lymph % (Auto) 18.6, [place] % (Auto) 4.5, Eos % (Auto) 0.5, Baso % (Auto) 1.5, Neut # (Auto) 5.0, Lymph # (Auto) 1.3, [place] # (Auto) 0.3, Eos # (Auto) 0.0, Baso # (Auto) 0.1, Sodium 138, Potassium 3.8, Chloride 103, Carbon Dioxide 25, Anion Gap 13.8, BUN 8, Creatinine 0.90, Estimated GFR 75, Est GFR ( Amer) 90, Glucose 95, Calcium 9.2, Total Bilirubin 0.8, AST 27, ALT 18, Alkaline Phosphatase 68, Total Protein 7.8, Albumin 4.9, Globulin 2.9, Albumin/Globulin Ratio 1.7, Serum HCG, Qual Negative 01/01/24 19:32 01/01/24 19:32 Orders (Tests/Meds): ED MEDICATIONS Generic Name Dose Route Start Last Admin Trade Name Freq PRN Reason Stop Dose Admin Sodium Chloride 1,000 mls @ 999 mls/hr 01/01/24 20:38 01/01/24 21:02 Sod Chlor 0.9% 1000ml Bag IV 01/01/24 21:38 999 mls/hr .Q1H1M ONE Administration Discontinued Medications Generic Name Dose Route Start Last Admin Trade Name [place] PRN Reason Stop Dose Admin Acetaminophen 1,000 mg 01/01/24 20:38 01/01/24 21:01 Acetaminophen 1,000mg/100ml Vial IV 01/01/24 20:39 1,000 mg ONCE ONE Administration Glucagon 1 mg 01/01/24 19:32 01/01/24 20:05 Glucagon 1 Mg/Ml Vial IV 01/01/24 19:33 1 mg ONCE ONE Administration Ondansetron HCl 4 mg 01/01/24 20:38 01/01/24 21:02 Ondansetron 4mg/2ml Vial IV 01/01/24 20:39 4 mg ONCE ONE Administration ORDERS Category Date Time Status General Surgery Consult [Consult to General Surgery] [ Cons 01/01/24 20:39 Ordered CONS] Stat CXR 2 view (NOT portable) [XR chest 2V] Stat Exams 01/01/24 19:18 Completed CBC w/Auto Diff [Complete Blood Count Auto Diff] Stat Lab 01/01/24 19:32 Completed CMP [Comprehensive Metabolic Panel] Stat Lab 01/01/24 19:32 Completed HIV (1&2) Antibody Rapid Stat Lab 01/01/24 21:01 Ordered Hep C Ab with Reflex to RNA Stat Lab 01/01/24 21:01 Ordered Serum [HCG Qualitative, Serum] Stat Lab 01/01/24 19:32 Completed Medical Decision Narrative: In summary, this patient is a 28-year-old female presenting to the Emergency Department for evaluation of inability to tolerate oral intake after feeling gross got stuck in her throat. Differential diagnoses considered include but are not limited to food bolus, esophageal stricture, esophageal injury, pneumomediastinum. Ruling out the most morbid conditions drove assessment. On exam, the patient is sitting upright. She is uncomfortable appearing and is unable to tolerate her secretions.Workup included basic lab evaluation, test, and two-view chest x-ray. I independently interpreted XR prior to the radiologist read and noted no obvious pneumomediastinum or other concern. Please see their read for final interpretation. Labs were obtained that demonstrated no significant leukocytosis, reassuring chemistry, negative test. On reassessment, patient had no improvement after administration of IV glucagon. She has continued vomiting but is not able to get any food up or tolerate any sort of liquids or secretions. Given this, I called and had an interactive discussion with Dr. Bello with general surgery who advised that he will come in and evaluate the patient. She was taken to the OR for food impaction of esophagus in stable condition. Critical Care Critical Care Time Critical Care Time: No
[2024-01-01 19:47] LABS: Basophils # 0.1 K/mm3 (0-0.2); Basophils % 1.5 % (0.1-2.0); Eosinophils % 0.5 % (0.1-12.0); Hematocrit 44.3 % (37.0-47.0); Hemoglobin 15.9 g/dL (12.2-16.2); Lymphocytes # 1.3 K/mm3 (0.7-4.5); Lymphocytes % 18.6 % (10-50); Mean Corpuscular Hemoglobin 31.5 pg (27.0-31.2); Mean Corpuscular Volume 87.6 fl (81-99); Mean Platelet Volume 7.8 fl (7.4-10.4); Monocytes # 0.3 K/mm3 (0.1-1.0); Monocytes % 4.5 % (1.7-9.3); Neutrophils % 74.8 % (37.0-80.0); Platelet Count 231 K/mm3 (142-424); Red Blood Count 5.05 M/mm3 (4.20-5.40); Red Cell Distribution Width 12.7 % (11.5-17.5); White Blood Count 6.7 K/mm3 (4.8-10.8)
[2024-01-01 19:58] LABS: HCG Qualitative, Serum Negative (Negative)
[2024-01-01] MEDS: GLUCAGON 1 MG/ML VIAL IV (20:05)
[2024-01-01 20:15] LABS: Alanine Aminotransferase 18 U/L (12-78); Albumin Level 4.9 g/dl (3.5-5.0); Albumin/Globulin Ratio 1.7 (1.1-1.8); Alkaline Phosphatase 68 U/L (38-126); Anion Gap 13.8 mEq/L (5-15); Aspartate Amino Transferase 27 U/L (14-36); Bilirubin,Total 0.8 mg/dl (0.2-1.3); Blood Urea Nitrogen 8 mg/dl (7-17); Calcium 9.2 mg/dl (8.4-10.2); Carbon Dioxide 25 mmol/L (22.0-30.0); Chloride 103 mmol/L (98-107); Estimated Glomerular Filt Rate 75 ml/min (>60); GFR (African American) 90 ML/MIN (>60); Globulin 2.9 g/dL (1.3-3.2); Glucose 95 mg/dl (74-100); Potassium 3.8 mmoL/L (3.5-5.1); Sodium 138 mmol/L (136-145); Total Protein,Serum 7.8 g/dl (6.3-8.2)
--- NOTE | 2024-01-01 20:36 | PC.NURSE ---
paged Dr. Bello
--- NOTE | 2024-01-01 20:37 | PC.NURSE ---
Dr. King s/w Dr. Bello
--- NOTE | 2024-01-01 20:56 | PC.NURSE ---
Notified to page surgery for Dr. Bello at 2037. Samir Calvert returned call at [phone] Cathy aYrbrough at 2039 Mis Hopkins at 2040.
[2024-01-01] MEDS: ACETAMINOPHEN 1,000MG/100ML VIAL 1000 MG IV (21:01)
[2024-01-01] MEDS: ONDANSETRON 4MG/2ML VIAL 4 MG IV (21:02)
[2024-01-01] MEDS: 0.9 % SODIUM CHLORIDE 1000ML 1,000 ML 999 ML IV (21:02)
--- NOTE | 2024-01-01 21:13 | EXP.SURG.CON ---
History of Present Illness *Admission Date: 01/01/24 *Reason for visit:: Food stuck in throat *History of present illness: Patient is a 28-year-old female with history of self-limited occasional dysphagia. She has occasionally had to regurgitate but never sought medical care for food impaction. She has no known history of GERD. She states that approximately 6 PM today she was eating pot roast and it became lodged. I was unable to pass. She has had odynophagia with substernal discomfort and inability to swallow secretions. Surgical consultation was obtained. [facility] Disclaimer: The information contained in this section may have been updated after the patient was seen, as this information can be updated by other users. Medical History Spasm of cervical paraspinous muscle Neck pain Posterior cervical lymphadenopathy Abnormal x-ray of cervical spine Intractable migraine Elevated liver enzymes Easy bruising Fatigue Migraine Alopecia Dysfunction of left eustachian tube CKD (chronic kidney disease) History of gestational diabetes Elevated random blood glucose level Situational mixed anxiety and depressive disorder Pap smear abnormality of cervix with LGSIL Colpo Normal Last pap Mar 2021 f/u every 6 months Anxiety Migraine with aura Complicated migraine Hyperemesis gravidarum Surgical History History of tonsillectomy History of cholecystectomy [place] teeth extracted Family History Mother Kidney disease Cancer squamous cell of skin Father Coronary artery disease Diabetes Heart attack Hyperlipidemia Hypertension Social History Smoking Status: Never smoker alcohol intake: current alcohol intake frequency: holidays/special occasions only substance use type: denies use current occupational status: employed Travel in the last 8 weeks: None household members: children housing: house lives independently: Yes number of children: 1 Review of Systems Review of Systems Review of systems:: pertinent systems reviewed and negative unless documented below Meds Home Medications and Allergies Home Medications ?Medication ?Instructions ?Recorded ?Confirmed ?Type oxazepam 10 mg capsule 10 mg PO TIDP situational 05/27/22 12/07/23 Rx depression #90 caps fluticasone propionate 50 1 spray intranasal DAILY #16 grams 12/26/22 12/07/23 Rx mcg/actuation nasal spray,suspension fremanezumab-vfrm 225 mg/1.5 mL 225 mg SQ QMONTH 09/11/23 12/07/23 History subcutaneous auto-injector (Ajovy) zavegepant 10 mg/actuation nasal intranasal 09/11/23 12/07/23 History spray (Zavzpret) ondansetron HCl 4 mg tablet 4 mg PO Q8H PRN nausea and 10/31/23 12/07/23 Rx vomiting #30 tabs lorazepam 2 mg tablet 2 mg PO BID PRN anxiety #14 tabs 11/16/23 12/07/23 Rx bupropion HCl 300 mg 24 hr tablet, 300 mg PO DAILY #90 tabs 12/07/23 12/07/23 Rx extended release desvenlafaxine 50 mg 50 mg PO DAILY #30 tabs 12/07/23 12/07/23 Rx tablet,extended release 24 hr prazosin 1 mg capsule 2 mg (2 x 1 mg) PO HS PRN 12/07/23 12/07/23 Rx Nightmares #180 caps quetiapine 25 mg tablet (Seroquel) 25 - 50 mg (1 - 2 x 25 mg) PO HS 12/07/23 12/07/23 Rx PRN sleep #180 tabs New Prescriptions to Start Prescriptions: Allergies Allergy/AdvReac Type Severity Reaction Status Date / Time No Known Allergies Allergy Verified 12/07/23 08:25 Exam (Inpt) Vital signs and Labs for Last 24 Hours: Temp Pulse Resp BP Pulse Ox O2 Del Method 98.0 F 78 20 136/87 98 Room Air 01/01/24 19:10 01/01/24 19:10 01/01/24 19:10 01/01/24 19:10 01/01/24 19:10 01/01/24 19:10 Laboratory Results - last 24 hr 01/01/24 19:32: WBC 6.7, RBC 5.05, Hgb 15.9, Hct 44.3, MCV 87.6, MCH 31.5 H, MCHC 36.0 H, RDW 12.7, Plt Count 231, MPV 7.8, Neut % (Auto) 74.8, Lymph % (Auto) 18.6, Mcpherson % (Auto) 4.5, Eos % (Auto) 0.5, Baso % (Auto) 1.5, Neut # (Auto) 5.0, Lymph # (Auto) 1.3, Mcpherson # (Auto) 0.3, Eos # (Auto) 0.0, Baso # (Auto) 0.1, Sodium 138, Potassium 3.8, Chloride 103, Carbon Dioxide 25, Anion Gap 13.8, BUN 8, Creatinine 0.90, Estimated GFR 75, Est GFR ( Amer) 90, Glucose 95, Calcium 9.2, Total Bilirubin 0.8, AST 27, ALT 18, Alkaline Phosphatase 68, Total Protein 7.8, Albumin 4.9, Globulin 2.9, Albumin/Globulin Ratio 1.7, Serum HCG, Qual Negative I & O for Labs for Last 24 Hours: Intake & Output 12/30/23 12/31/23 01/01/24 01/02/24 11:59 11:59 11:59 11:59 Weight 143 lb Constitutional: mild distress Comment:: Patient uncomfortable sitting up and able to swallow secretions Head: Present normocephalic Neck: Present normal inspection Respiratory: Present CTA bilaterally Cardiac: Present Reg Rate and Rhythm GI: Present soft Rectal (female): Present deferred (female): Present deferred Results Labs 01/01/24 19:32 01/01/24 19:32 Labs: Laboratory Results - last 24 hr 01/01/24 19:32: WBC 6.7, RBC 5.05, Hgb 15.9, Hct 44.3, MCV 87.6, MCH 31.5 H, MCHC 36.0 H, RDW 12.7, Plt Count 231, MPV 7.8, Neut % (Auto) 74.8, Lymph % (Auto) 18.6, Mcpherson % (Auto) 4.5, Eos % (Auto) 0.5, Baso % (Auto) 1.5, Neut # (Auto) 5.0, Lymph # (Auto) 1.3, Mcpherson # (Auto) 0.3, Eos # (Auto) 0.0, Baso # (Auto) 0.1, Sodium 138, Potassium 3.8, Chloride 103, Carbon Dioxide 25, Anion Gap 13.8, BUN 8, Creatinine 0.90, Estimated GFR 75, Est GFR ( Amer) 90, Glucose 95, Calcium 9.2, Total Bilirubin 0.8, AST 27, ALT 18, Alkaline Phosphatase 68, Total Protein 7.8, Albumin 4.9, Globulin 2.9, Albumin/Globulin Ratio 1.7, Serum HCG, Qual Negative Assessment and Plan *Assessment and plan (1) Food impaction of esophagus: Status: Acute Category: Medical Code(s): T18.128A - Food in esophagus causing other injury, initial encounter; W44.F3XA - Food entering into or through a natural orifice, initial encounter Plan Plan to proceed with emergent upper endoscopy
[2024-01-01 21:28] VITALS: BP 120/78; PULSE 80; RESP 18; TEMP 36.7; O2SAT 98
[2024-01-01 21:33] VITALS: O2SAT 100
[2024-01-01 22:06] LABS: HIV (1&2) Antibody Rapid NONREACTIVE (NONREACTIVE)
--- NOTE | 2024-01-01 22:34 | HMH.SCOPE ---
Procedure: Date: 01/01/24 Patient Date of :: 1995 Procedure Performed:: Esophagogastroduodenoscopy with extraction of food bolus for esophageal obstruction Indications:: Patient is a 28-year-old female with history of self-limited occasional dysphagia. She has occasionally had to regurgitate but never sought medical care for food impaction. She has no known history of GERD. She states that approximately 6 PM today she was eating pot roast and it became lodged. I was unable to pass. She has had odynophagia with substernal discomfort and inability to swallow secretions. Surgical consultation was obtained. Plan was made to proceed with emergent upper endoscopy in the late evening of 01/01/2024 for retrieval of foreign body food impaction. . Performing Provider:: Juan Bello MD Referring Provider:: Latonya Contreras Sedation:: MAC sedation Procedure:: Patient history was obtained and appropriate physical examination was performed. Patient's medications and allergies were reviewed. Informed consent was obtained after explaining the benefits, alternatives, and risks of the procedure including, but not limited to, bleeding, perforation, missed lesions, and adverse reaction to anesthesia medications. Patient was transported to endoscopy procedure room. Patient was connected to monitoring devices. Throughout the procedure the patient's blood pressure, pulse, and oxygen saturations were monitored continuously. Patient identification and planned procedure were verified by the staff. Patient was positioned in lateral decubitus position. Olympus endoscope was inserted via the oropharynx. Salivary secretions were encountered and suctioned free. Impacted meat food bolus was encountered at approximately 30 cm from the incisors. A variety of technique was used in an attempt to remove this including Kwong net and Caesar grasping forceps without success. The e-suction device was then attached to the endoscope. This resulted in partial retrieval of the food impaction to the oropharynx/proximal esophageal region. Several different methods were utilized in an attempt to extract the food bolus at this location. Ultimately it was able to be extracted once again with the e-suction device extracting a large meat bolus. The E section device was then removed from the endoscope and the endoscope was inserted. Second large meat bolus was encountered once again in the distal esophagus at approximately 30 to 35 cm from the incisors. The endoscope was withdrawn and the suction device was reattached. It was advanced. Second a large meat bolus was able to be extracted with withdrawal of the endoscope. The e-suction device was then removed. Endoscope was advanced. There was no evidence of any remaining obstruction. Gastroesophageal junction was encountered at approximately 38 cm. It was unclear if there is a true stricture due to the inflammatory response. Stomach was cannulated. There was food and liquid within the stomach. Gas was desufflated from the stomach and the endoscope was withdrawn. . Findings:: Esophageal food impaction distal esophagus Recommendations:: Clear liquids for at least 24 hours. Soft diet thereafter. Plan for follow-up endoscopy electively for possible dilatation and biopsies to evaluate for microscopic esophagitis. Complications:: None immediately apparent Estimated blood obtained (mL): 1 Colonoscopy Component Colonoscopy Component Was a colonoscopy performed during today's procedure?: No
[2024-01-01 22:35] VITALS: BP 99/61; PULSE 85; RESP 15; TEMP 36.7; O2SAT 100
--- NOTE | 2024-01-01 22:35 | P.PNANES_ITS ---
[facility] Disclaimer: The information contained in this section may have been updated after the patient was seen, as this information can be updated by other users. Medical History Spasm of cervical paraspinous muscle Neck pain Posterior cervical lymphadenopathy Abnormal x-ray of cervical spine Intractable migraine Elevated liver enzymes Easy bruising Fatigue Migraine Alopecia Dysfunction of left eustachian tube CKD (chronic kidney disease) History of gestational diabetes Elevated random blood glucose level Situational mixed anxiety and depressive disorder Pap smear abnormality of cervix with LGSIL Anxiety Migraine with aura Complicated migraine Hyperemesis gravidarum Surgical History History of tonsillectomy History of cholecystectomy [place] teeth extracted Family History Mother Kidney disease Cancer Father Coronary artery disease Diabetes Heart attack Hyperlipidemia Hypertension Social History Smoking Status: Never smoker alcohol intake: current alcohol intake frequency: holidays/special occasions only substance use type: denies use current occupational status: employed Travel in the last 8 weeks: None household members: children housing: house lives independently: Yes number of children: [address] [facility] Anesthesia Checklist Patient Identification Patient Identification: Verbal (Name & ) Structural Data Admitted From: Emergency Dept Planned Operative Procedure/s: egd Airway Assessment Mallampati Score:: Class II C-Spine Mobility Assessed: Yes TMJ Mobility Assessed: Yes Dentition: Good Dentition Neurological Assessment Level of Consciousness: Awake, Alert and Appropriate Anesthesia Plan Anesthesia Risk discussed: Yes Anesthesia Plan: Verified ASA Class: II Anesthesia Type: MAC
[2024-01-01 22:45] VITALS: BP 117/75; PULSE 96; RESP 17; O2SAT 100
[2024-01-01 22:49] VITALS: PULSE 96; RESP 17; O2SAT 100
[2024-01-03 08:21] LABS: HCV Ab Non Reactive (Non Reactive)
== END 2024-01-01 23:07 | disposition home or self-care (01) ==
PROVIDERS: Emergency Medicine; PCP Nurse Practitioner; Visit Provider Surgery
PROC: 0DJ08ZZ Inspection of Upper Intestinal Tract, Via Natural or Artificial Opening Endoscopic (ICD-10-PCS; CPT 43247; principal; 2024-01-01 21:30)
DX: T18.128A Food in esophagus causing other injury, initial encounter (principal); R13.10 Dysphagia, unspecified; W44.F3XA Food entering into or through a natural orifice, initial encounter
CPT/HCPCS: 43247; 71046; 80053; 84703; 85025; 86803; 87389; J0131; J1611; J2405; J2704; J7030

== ENCOUNTER 2024-03-18 12:01 | Day surgery (SDC) | payer BC, SELFPAY ==
[2024-03-12 11:07] VITALS: BMI 24.1
[2024-03-18 12:45] LABS: Urine Pregnancy, HCG Qual. Negative (Negative)
[2024-03-18 12:50] VITALS: BP 119/77; PULSE 91; RESP 16; TEMP 36.7; O2SAT 99
[2024-03-18] MEDS: LACTATED RINGERS 1000ML 1,000 ML 50 ML IV (12:53)
--- NOTE | 2024-03-18 13:20 | EXP.ANES.CKL ---
[facility] Disclaimer: The information contained in this section may have been updated after the patient was seen, as this information can be updated by other users. Medical History Spasm of cervical paraspinous muscle Neck pain Posterior cervical lymphadenopathy Abnormal x-ray of cervical spine Intractable migraine Elevated liver enzymes Easy bruising Fatigue Migraine Alopecia Dysfunction of left eustachian tube CKD (chronic kidney disease) History of gestational diabetes Elevated random blood glucose level Situational mixed anxiety and depressive disorder Pap smear abnormality of cervix with LGSIL Colpo Normal Last pap Mar 2021 f/u every 6 months Anxiety Migraine with aura Complicated migraine Hyperemesis gravidarum Surgical History History of tonsillectomy History of cholecystectomy [place] teeth extracted Family History Mother Kidney disease Cancer squamous cell of skin Father Coronary artery disease Diabetes Heart attack Hyperlipidemia Hypertension Social History Smoking Status: Never smoker alcohol intake: never substance use type: denies use current occupational status: unemployed Travel in the last 8 weeks: None household members: children housing: house lives independently: Yes number of children: 1 Have you lived/traveled outside [place] in past 30 days?: No Contact w/someone who lives/traveled outside [place] past 30 days?: No Exposure to someone with infectious disease in past 14 days?: No Do you have a fever (greater than 100.4 F or 38 C)?: No Have you tested positive for COVID-19: No Exposed to someone with COVID-19 in past 14 days?: No Do you have a sore throat?: No Do you have a cough?: No Do you have any weakness?: No Do you have any diarrhea?: No Are you experiencing any unusual bleeding?: No Do you have any muscle aches/pain?: No Do you have any abdominal pain?: No Are you experiencing loss of taste or smell?: No [facility] Anesthesia Checklist Patient Identification Patient Identification: Verbal (Name & ) Structural Data Admitted From: Home Planned Operative Procedure/s: egd Consent for Planned Operative Procedure(s) Verified: Yes NPO Status Verified Time NPO: 00:00 Airway Assessment Mallampati Score:: Class II C-Spine Mobility Assessed: Yes TMJ Mobility Assessed: Yes Dentition: Good Dentition Neurological Assessment Level of Consciousness: Awake, Alert and Appropriate Anesthesia Plan Anesthesia Risk discussed: Yes Anesthesia Plan: Verified ASA Class: II Anesthesia Type: MAC
--- NOTE | 2024-03-18 14:18 | EXP.HP ---
History of Present Illness *Admission Date: 03/18/24 *Reason for visit:: Dysphagia/food regurgitation *History of present illness: Ms. Keenan is a 28-year-old female who is here for diagnostic EGD secondary to dysphagia and food regurgitation. The patient did have a prior food impaction (Dr. Bello performed EGD). The examination is deemed medically necessary for diagnostic/therapeutic upper endoscopy. The patient has been seen, interviewed and examined prior to the procedure by both myself and the anesthesia provider. [facility] Disclaimer: The information contained in this section may have been updated after the patient was seen, as this information can be updated by other users. Medical History Spasm of cervical paraspinous muscle Neck pain Posterior cervical lymphadenopathy Abnormal x-ray of cervical spine Intractable migraine Elevated liver enzymes Easy bruising Fatigue Migraine Alopecia Dysfunction of left eustachian tube CKD (chronic kidney disease) History of gestational diabetes Elevated random blood glucose level Situational mixed anxiety and depressive disorder Pap smear abnormality of cervix with LGSIL Colpo Normal Last pap Mar 2021 f/u every 6 months Anxiety Migraine with aura Complicated migraine Hyperemesis gravidarum Surgical History History of tonsillectomy History of cholecystectomy [place] teeth extracted Family History Mother Kidney disease Cancer squamous cell of skin Father Coronary artery disease Diabetes Heart attack Hyperlipidemia Hypertension Social History Smoking Status: Never smoker alcohol intake: never substance use type: denies use current occupational status: unemployed Travel in the last 8 weeks: None household members: children housing: house lives independently: Yes number of children: 1 Have you lived/traveled outside [place] in past 30 days?: No Contact w/someone who lives/traveled outside [place] past 30 days?: No Exposure to someone with infectious disease in past 14 days?: No Do you have a fever (greater than 100.4 F or 38 C)?: No Have you tested positive for COVID-19: No Exposed to someone with COVID-19 in past 14 days?: No Do you have a sore throat?: No Do you have a cough?: No Do you have any weakness?: No Do you have any diarrhea?: No Are you experiencing any unusual bleeding?: No Do you have any muscle aches/pain?: No Do you have any abdominal pain?: No Are you experiencing loss of taste or smell?: No Other Medical History Have you received the Flu Vaccine for this season: No Have you received the Pneumonia Vaccine: No Review of Systems Review of Systems Review of systems (narrative): Negative *Cardiovascular Comments: Negative *Gastrointestinal Comments: Negative *Genitourinary Comments: Negative *Musculoskeletal Comments: Negative *Neurologic Comments: Negative Meds Home Medications and Allergies Home Medications ?Medication ?Instructions ?Recorded ?Confirmed ?Type fluticasone propionate 50 1 spray intranasal DAILY #16 grams 12/26/22 03/18/24 Rx mcg/actuation nasal spray,suspension fremanezumab-vfrm 225 mg/1.5 mL 225 mg SQ QMONTH 09/11/23 03/18/24 History subcutaneous auto-injector (Ajovy) zavegepant 10 mg/actuation nasal 1 spray intranasal DAILY 09/11/23 03/18/24 History spray (Zavzpret) ondansetron HCl 4 mg tablet 4 mg PO Q8H PRN nausea and 10/31/23 03/18/24 Rx vomiting #30 tabs albuterol sulfate 90 mcg/actuation 2 puff inhalation Q4-6H PRN 01/30/24 03/18/24 Rx aerosol inhaler shortness of breath or wheezing #8.5 grams bupropion HCl 300 mg 24 hr tablet, 300 mg PO DAILY #90 tabs 03/06/24 03/18/24 Rx extended release desvenlafaxine 50 mg 50 mg PO DAILY #90 tabs 03/06/24 03/18/24 Rx tablet,extended release 24 hr prazosin 1 mg capsule 2 mg (2 x 1 mg) PO HS PRN 03/06/24 03/18/24 Rx Nightmares #180 caps quetiapine 25 mg tablet (Seroquel) 25 - 50 mg (1 - 2 x 25 mg) PO HS 03/06/24 03/18/24 Rx PRN sleep #180 tabs New Prescriptions to Start Prescriptions: Allergies Allergy/AdvReac Type Severity Reaction Status Date / Time codeine Allergy Unknown Verified 03/12/24 11:01 allergy reaction morphine Allergy Unknown Verified 03/12/24 11:01 allergy reaction Exam Data for Last 24 hours Vital signs and Labs for Last 24 Hours: Temp Pulse Resp BP Pulse Ox O2 Del Method 98.1 F 91 H 16 119/77 99 Room Air 03/18/24 12:50 03/18/24 12:50 03/18/24 12:50 03/18/24 12:50 03/18/24 12:50 03/18/24 12:50 Laboratory Results - last 24 hr 03/18/24 12:30: Urine HCG, Qual Negative *Routine HEENT Exam Head: Present normocephalic Eye: Present EOMI and PERRL ENT: Present mucous membranes moist *Routine Neck Exam Neck: Present supple *Routine Respiratory Exam Respiratory: Present CTA bilaterally *Routine Cardiovascular Exam Cardiovascular: Present RRR *Routine Abdominal Exam Abdominal: Present soft and normoactive bowel sounds; Absent tenderness *Routine Rectal Exam Rectal:: deferred *Routine Genitalia Exam Genitalia:: deferred *Routine Extremities Exam Extremities: Absent cyanosis, clubbing or edema *Routine Skin Exam Skin: Present warm; Absent rash *Routine Neurological Exam Neurological: Present alert and oriented X3 Assessment and Plan *Assessment and plan (1) Dysphagia: Status: Acute Category: Medical Code(s): R13.10 - Dysphagia, unspecified (2) Food impaction of esophagus: Status: Acute Category: Medical Code(s): T18.128A - Food in esophagus causing other injury, initial encounter; W44.F3XA - Food entering into or through a natural orifice, initial encounter Plan A/P: 1. Dysphagia with prior food impaction is the preprocedural diagnosis. The patient will be anesthetized/sedated using MAC sedation. The patient has been seen and examined. Cardiac and lung assessment prior to the examination is stable. Proceed with planned upper endoscopy
[2024-03-18 14:28] VITALS: O2SAT 100
--- NOTE | 2024-03-18 14:30 | P.PCN_ITS ---
[facility] Procedure Note Date: 03/18/24 Time: 14:41 Procedure Note:: Upper Endoscopy Procedure Report: Esophagogastroduodenoscopy with cold biopsies and TTS balloon dilation Endoscopost: Aftab Ellison II, MD Referring Physician: HANSA Palumbo Date of Procedure: March 18, 2024 Equipment: Olympus GIF 190 standard upper endoscope Sedation: MAC sedation Indications: Ms. Keenan is a 28-year-old female with dysphagia for the last couple of years. She will have swallowing difficulty where food will get hung up a couple of times monthly. Most of the time she is able to gradually wash this down with fluids and does not have significant food regurgitation. In December, she did develop food impaction within the esophagus after swallowing the food bolus and went to the emergency department. Dr. Juan Bello performed EGD with extraction of 2 large meat boluses. The esophagus was not dilated at that time. She reports no heartburn or reflux. She reports no family history of esophageal strictures or esophageal cancer. She reports no weight loss. Procedure: Prior to the procedure, a history and physical exam was performed, and patient's medications and allergies were reviewed. The risks, benefits and alternatives of the sedation and procedure were discussed with the patient. All questions were answered and informed consent was obtained. The patient was brought to the procedure room. Patient identification and proposed procedure were verified by the physician and the nurse. The patient was placed in a left lateral decubitus position and the scope was passed under direct vision. Throughout the procedure, the patient's blood pressure, pulse, and oxygen saturations were monitored continuously. The upper GI endoscopy was accomplished without difficulty. The patient tolerated the procedure well. Findings: The scope was passed directly into the upper esophagus and advanced to the third portion of the duodenum. The post bulbar duodenum and duodenal bulb were normal with normal mucosa and conniventes. The scope was withdrawn through a normal duodenal bulb and pylorus into the stomach. There was some linear reactive gastropathy of the antrum. The body and fundus of the stomach were normal. Upon retroflexion there was a very small sliding 1 to 2 cm hiatal hernia. Biopsies were taken from the antrum. The scope was then withdrawn into the esophagus. There was no evidence of reflux esophagitis or Burris's. There was evidence of some corrugation and furrowing in both distal and proximal esophagus. Biopsies were taken from the distal and proximal esophagus separately to rule out eosinophilic esophagitis. Next, the entire esophagus was dilated to 20 mm/60 Fris[place] with a TTS hydrostatic balloon. There was a distal fibrous ring that was shattered with the balloon. The remainder of the esophageal mucosa was normal. Impression: 1. Mild corrugation/furrowing of the esophagus with distal fibrotic ring?rule out eosinophilic esophagitis and esophagus was dilated in its entirety to 20 mm 2. Mild antral reactive gastropathy Plan: I will follow-up the biopsies and initiate PPI therapy. I will discuss the findings with the patient and family. I will order RAST food allergy testing.
[2024-03-18 14:45] VITALS: BP 109/59; PULSE 113; RESP 18; TEMP 36.3; O2SAT 98
[2024-03-18 14:55] VITALS: BP 102/64; PULSE 84; RESP 18; O2SAT 100
[2024-03-18 15:05] VITALS: BP 104/82; PULSE 85; RESP 18; O2SAT 100
[2024-03-18 15:40] VITALS: BP 106/68; PULSE 82; RESP 18; O2SAT 100
[2024-03-20 15:24] LABS: F001-IgE Egg White <0.10 kU/L (Class 0); F002-IgE Milk <0.10 kU/L (Class 0); F003-IgE Codfish <0.10 kU/L (Class 0); F004-IgE Wheat <0.10 kU/L (Class 0); F010-IgE Sesame Seed <0.10 kU/L (Class 0); F013-IgE Peanut <0.10 kU/L (Class 0); F014-IgE Soybean <0.10 kU/L (Class 0); F024-IgE Shrimp <0.10 kU/L (Class 0); F256-IgE Walnut <0.10 kU/L (Class 0); F338-IgE Scallop <0.10 kU/L (Class 0)
== END 2024-03-18 15:40 | disposition home or self-care (01) ==
PROVIDERS: PCP Nurse Practitioner; Visit Provider Internal Medicine Gastroenterology
PROC: 0DJ08ZZ Inspection of Upper Intestinal Tract, Via Natural or Artificial Opening Endoscopic (ICD-10-PCS; CPT 43239; principal; 2024-03-18 13:30)
DX: R13.10 Dysphagia, unspecified (principal); T18.128A Food in esophagus causing other injury, initial encounter; K20.0 Eosinophilic esophagitis; W44.F3XA Food entering into or through a natural orifice, initial encounter; K44.9 Diaphragmatic hernia without obstruction or gangrene; K31.9 Disease of stomach and duodenum, unspecified
CPT/HCPCS: 43239; 43249; 81025; 86003; 86008; C1726; J7120

== ENCOUNTER 2024-06-10 17:19 | Outpatient (CLI) | payer BC, SELFPAY ==
--- NOTE | 2024-06-10 17:00 | CT_ITS ---
PROCEDURE INFORMATION: Exam: CT Abdomen And Pelvis With Contrast Exam date and time: 06/10/2024 6:30 PM Age: 29 years old Clinical indication: Other: Stat CT abd/pelvis with iv cx - rlq abd pain, dub TECHNIQUE: Imaging protocol: Computed tomography of the abdomen and pelvis with contrast. Radiation optimization: All CT scans at this facility use at least one of these dose optimization techniques: automated exposure control; mA and/or kV adjustment per patient size (includes targeted exams where dose is matched to clinical indication); or iterative reconstruction. Contrast material: ISOVUE; Contrast volume: 75 ml; Contrast route: IV; COMPARISON: CR XR CHEST 2V 01/01/2024 7:55 PM FINDINGS: Tubes, catheters and devices: None noted. Lungs: Lung bases appear clear. Heart: No significant coronary calcifications. No cardiomegaly. No significant pericardial effusion. Liver: Normal. No mass. Gallbladder and biliary ducts: Normal. No calcified stones. No ductal dilation. Pancreas: Normal. No ductal dilation. Spleen: Normal. No splenomegaly. Adrenal glands: Normal. No mass. Kidneys and ureters: Normal. No hydronephrosis. Stomach and bowel: Unremarkable. No obstruction. No mucosal thickening. Appendix: No evidence of appendicitis. Intraperitoneal space: Unremarkable. No free air. No significant fluid collection. Retroperitoneal space: No significant retroperitoneal inflammatory changes are noted. Vasculature: Unremarkable. No abdominal aortic aneurysm. Lymph nodes: Unremarkable. No enlarged lymph nodes. Urinary bladder: Unremarkable as visualized. Reproductive: Unremarkable as visualized. Bones/joints: Unremarkable. No acute fracture. Soft tissues: Unremarkable. IMPRESSION: No acute findings.
[2024-06-10 17:46] LABS: Basophils # 0.1 K/mm3 (0-0.2); Basophils % 0.9 % (0.1-2.0); Eosinophils % 0.3 % (0.1-12.0); Hematocrit 41.3 % (37.0-47.0); Hemoglobin 14.4 g/dL (12.2-16.2); Lymphocytes # 1.4 K/mm3 (0.7-4.5); Lymphocytes % 19.9 % (10-50); Mean Corpuscular HGB Conc 34.9 g/dL (31.8-35.4); Mean Corpuscular Hemoglobin 31.6 pg (27.0-31.2); Mean Corpuscular Volume 90.6 fl (81-99); Mean Platelet Volume 10.6 fl (7.4-10.4); Monocytes # 0.4 K/mm3 (0.1-1.0); Monocytes % 6.3 % (1.7-9.3); Neutrophils % 72.3 % (37.0-80.0); Nucleated Red Blood Cells # 0 10^3/uL; Nucleated Red Blood Cells % 0 %; Platelet Count 280 K/mm3 (142-424); Red Blood Count 4.56 M/mm3 (4.20-5.40); Red Cell Distribution Width 12.6 % (11.5-17.5); Red Cell Distribution Width-SD 41.1 fL
[2024-06-10 17:51] LABS: Albumin Level 4.6 g/dl (3.5-5.0); Chloride 106 mmol/L (98-107); Sodium 141 mmol/L (136-145)
[2024-06-10 17:53] LABS: Alanine Aminotransferase 18 U/L (12-78); Aspartate Amino Transferase 27 U/L (14-36); Blood Urea Nitrogen 10 mg/dl (7-17); Carbon Dioxide 26 mmol/L (22.0-30.0); Estimated Glomerular Filt Rate 59 ml/min (>60); GFR (African American) 71 ML/MIN (>60)
[2024-06-10 17:54] LABS: Albumin/Globulin Ratio 1.4 (1.1-1.8); Alkaline Phosphatase 72 U/L (38-126); Bilirubin,Total 0.5 mg/dl (0.2-1.3); Calcium 9.1 mg/dl (8.4-10.2); Globulin 3.3 g/dL (1.3-3.2); Glucose 93 mg/dl (74-100); Total Protein,Serum 7.9 g/dl (6.3-8.2)
[2024-06-10 18:16] LABS: HCG,Quantitative < 2 mIU/ml (0-5.42)
[2024-06-10] MEDS: SODIUM CHLORIDE 0.9% 10ML SYR (RAD ONLY) 10 ML IV (18:33)
[2024-06-10] MEDS: IOPAMIDOL-370 (76%);100ML BOTTLE 75 ML IV (18:33)
== END 2024-06-10 23:59 | disposition home or self-care (01) ==
LOC: RAD 17:22
PROVIDERS: PCP Nurse Practitioner; Visit Provider Nurse Practitioner
DX: R10.31 Right lower quadrant pain (principal)
CPT/HCPCS: 36415; 74177; 80053; 84702; 85025; Q9967